=== PATIENT | female | born 1950 | race Caucasian/White ===

== ENCOUNTER → 2020-01-19 09:09 | Outpatient (BNVA) | payer MEDICARE, BC, SELFPAY | PROVIDERS: Family Provider Family Medicine; PCP Family Medicine; Referring Provider Family Medicine; Visit Provider Specialist | DX: M25.559 Pain in unspecified hip (principal); M77.9 Enthesopathy, unspecified | CPT/HCPCS: 73502 ==

== ENCOUNTER 2020-01-31 16:00 | Outpatient (RCR) | payer MEDICARE, BC, SELFPAY | END 2020-02-21 23:59 | disposition home or self-care (01) | LOC: MPT 16:00 | PROVIDERS: PCP Family Medicine; Referring Provider Specialist; Visit Provider Specialist | DX: M25.552 Pain in left hip (principal) | CPT/HCPCS: 97110; 97140; 97161 ==

== ENCOUNTER → 2020-02-03 08:29 | Outpatient (BNVA) | payer MEDICARE, BC, SELFPAY | PROVIDERS: PCP Family Medicine; Visit Provider Specialist | DX: Z47.1 Aftercare following joint replacement surgery (principal); Z96.651 Presence of right artificial knee joint | CPT/HCPCS: 73560; 73565 ==

== ENCOUNTER → 2020-02-17 09:11 | Outpatient (BNVA) | payer MEDICARE, BC, SELFPAY | PROVIDERS: PCP Family Medicine; Visit Provider Specialist | DX: M25.552 Pain in left hip (principal) | CPT/HCPCS: 73502 ==

== ENCOUNTER 2020-02-22 06:00 | Outpatient (RCR) | payer MEDICARE, BC, SELFPAY | END 2020-03-22 23:59 | disposition home or self-care (01) | LOC: MPT 06:00 | PROVIDERS: PCP Family Medicine; Referring Provider Specialist; Visit Provider Specialist | DX: M25.551 Pain in right hip (principal) | CPT/HCPCS: 97110; 97140 ==

== ENCOUNTER → 2020-06-01 10:26 | Outpatient (BNVA) | payer MEDICARE, BC, SELFPAY | PROVIDERS: PCP Family Medicine; Visit Provider Specialist | DX: Z20.828 Contact with and (suspected) exposure to other viral communicable diseases (principal) | CPT/HCPCS: 87635 ==

== ENCOUNTER 2020-06-06 15:45 | Observation (INO) | payer MEDICARE, BC, SELFPAY ==
[2020-06-01 09:12] VITALS: BMI 37.8
--- NOTE | 2020-06-01 09:36 | P.ANESASSM_ITS ---
Pre-Anesthetic Assessment Pre-Anesthetic Assessment: Height/Weight: Height 1.55 m Weight 90.718 kg Preop Diagnosis: DJD left hip Proposed Procedure: Operation Date: 06/06/20 13:05 Proposed Procedures p Total Hip Arthroplasty 99908 M16.9(Left) - Sheila Rowland MD Familial anesthetic complications: None Social: Social History: Tobacco and No alcohol Exam: Pre-Anes Outpt Exam: alert, oriented x 3, clear to auscultation bilaterally and regular rate & rhythm Airway: Cervical ROM: WNL MP: 4 Dentition: Partials CV/HEM: CV/HEM: CAD and [place] Comments: CABG 1.5 years ago, was seeing Dr. Sheehan as lead applications developer Achieves > 4 METS Metabolic: Metabolic: Thyroid (radiation therapy + synthroid) Musc/skel: Musc/skel: OA/DJD Anesthetic Plan: ASA status: 3 Anesthesia: General Other: patient declined spinal Risk of > 500 ml blood loss (7ml/kg in children): No PFSH Anesthesia PFSH: Medical History COPD (chronic obstructive pulmonary disease) Myocardial infarction Tobacco abuse Surgical History History of total right knee replacement S/P CABG (coronary artery bypass graft) S/P hysterectomy S/P knee replacement Status post breast reduction Family History Father Cancer Brother Cancer CAD (coronary artery disease) Diabetes Hypertension Myocardial infarction Family history of premature coronary artery disease, Onset Age: 50 Mother Myocardial infarction CAD (coronary artery disease) Social History Smoking and tobacco status: current every day smoker cigarettes Packs smoked per day: 1 Alcohol intake: never Household members: spouse Marital status: Data Anesthesia Cardiac Studies: No Data to Display
[2020-06-01 09:42] LABS: Add Urine Microscopic? NO
--- NOTE | 2020-06-01 09:43 | ECG_ITS ---
[facility] Test Date: 2020-06-01 Pat Name: Rin Mead Department: Room: Gender: Female House Repairer: : 1950 Requested By: Jennifer Santos Order Number: [id number] Kelli MD: Carol Ann Harmon M.D. Measurements Intervals [place] Rate: 54 P: 39 PA: 181 QRS: 12 QRSD: 80 T: 46 QT: 425 QTc: 405 Interpretive Statements SINUS BRADYCARDIA Compared to ECG 01/02/2018 11:16:09 No significant changes Electronically Signed On 06-01-2020 21:25:30 CARAMEL MAKER by Carol Ann Harmon M.D. [id number]
[2020-06-01 09:46] LABS: Basophils % 0.3 %; Eosinophils # 0.5 10^3/uL (0.0-0.8); Eosinophils % 8.4 %; Hematocrit 45.5 % (37.0-47.0); Hemoglobin 14.9 g/dL (11.5-15.3); Lymphocytes # 2.1 10^3/uL (0.8-4.8); Lymphocytes % 35.2 %; Mean Corpuscular HGB Conc 32.7 g/dL (30.0-36.0); Mean Corpuscular Volume 94.8 fL (81-99); Monocytes # 0.5 10^3/uL (0.2-0.9); Neutrophils # 2.86 10^3/uL (1.8-7.7); Neutrophils % 47.9 %; Nucleated Red Blood Cells % 0 %; Platelet Count 266 10^3/cmm (130-400); Red Cell Distribution Width 13.1 % (12.1-15.1)
[2020-06-01 10:05] LABS: Alanine Aminotransferase 28 U/L (0-33); Alkaline Phosphatase 73 IU/L (35-105); Anion Gap 14.3 (5-19); Aspartate Amino Transferase 24 U/L (0-32); Blood Urea Nitrogen 16 mg/dL (8-23); Carbon Dioxide 24 mmol/L (22-29); Chloride 104 mmol/L (98-107); Creatinine Clr Calc Pharmacy 69.9864; Globulin 2.9 g/dL (1.3-4.6); Glomerular Filtration Rate 83.5 mL/min (90-130); Glucose 113 mg/dL (65-115); Osmolality Calculated 288 mOsm/kg (285-295); Potassium 4.3 mmol/L (3.5-5.1); Sodium 138 mmol/L (136-145); Total Bilirubin 0.4 mg/dL (0.15-1.2); Total Protein 6.9 g/dL (6.6-8.7)
[2020-06-01 10:20] LABS: Bilirubin Urine Neg (Negative); Blood Urine Neg (Negative); Glucose Urine UA Norm (Normal); Ketones Urine Negative (Negative); Leukocyte Esterase Urine Negative (Negative); Nitrate Urine Negative (Negative); Protein Urine Neg (Negative); Specific Gravity, Urine 1.015 (1.005-1.030); Urine Appearance Clear (CLEAR); Urine Color Yellow (Yellow); Urobilinogen Urine Norm (Negative); pH Urine 5 (5-7)
[2020-06-06] VITALS (22 sets, daily range): BP systolic 101–144; BP diastolic 59–96; PULSE 58–82; RESP 12–20; TEMP 36.4–37.1; O2SAT 91–98
[2020-06-06] MEDS: CELEcoxib 200 mg Capsule 400 MG PO (09:41)
[2020-06-06] MEDS: sodium chloride 0.9% 1,000 ML 30 ML IV (09:51)
--- NOTE | 2020-06-06 10:38 | P.HPUD_ITS ---
Surgery/Procedure H&P Update DATE OF PROCEDURE: June 06, 2020 DATE H&P PERFORMED: 06/01/20 H&P UPDATE INFORMATION: I have reviewed H&P completed within last 30 days, I have examined patient prior to procedure, No changes to prior documentation and H&P is in [facility] EMR on date indicated PREOP DIAGNOSIS: DJD left hip PLANNED PROCEDURE: Operation Date: 06/06/20 10:50 Proposed Procedures p Total Hip Arthroplasty 46994 M16.9(Left) - Sheila Rowland MD Related Problem List Diagnoses (1) Osteoarthritis of left hip: Qualifiers: Osteoarthritis type: primary Qualified Code(s): M16.12 - Unilateral primary osteoarthritis, left hip
[2020-06-06] MEDS: vancomycin 1,000 MG in sodium chloride 0.9% 250 ML 250 MG IV (11:10)
[2020-06-06] MEDS: ceFAZolin 1,000 mg SDV 1000 MG IRRIGATION (12:34)
[2020-06-06] MEDS: vancomycin 1,000 MG SDV 1000 MG XX (12:41)
--- NOTE | 2020-06-06 14:54 | XR_ITS ---
WS: [id number] Pelvis, AP view, 06/06/2020 Clinical Data: Status post total hip arthroplasty Comparison: Pelvis, 02/17/2020. Findings: There is a left hip arthroplasty in position. The medullary lamina component is within the proximal f emoral medullary canal. The right hip shows osteoarthritic change. XR/XR pelvis 1-2V* [id number] Impression: Satisfactory position left hip arthroplasty
--- NOTE | 2020-06-06 15:15 | PM.OP ---
Operative Report Date of procedure: June 06, 2020 Pre-op Diagnosis: Severe degenerative osteoarthritis left hip with large osteophytes Post-op diagnosis: same Post-op Findings: Severe degenerative osteoarthritis with significant hip contracture Procedure Done: Left total hip arthroplasty Implants: Sellers Accolade II total hip system: The size 48 mm solid back acetabular shell with a D alpha code and an MDM liner size 38 mm inner diameter by D alpha code. An Accolade II size 5 x 127 degree neck angle hip stem, femoral head size 22.2 mm outer diameter with a 0 mm offset inside of an MDM insert size inner diameter 22.2 mm to match the 38D Specimens removed/disposition: Bone, disposed of Pathology: none sent Surgeon: Sheila Rowland Grinding Wheel Inspector: [facility] OR technicians Anesthesia: General (Intubated, ASA 3) Estimated blood loss (mL): 500 IV fluids (mL): 1,600 Urine output (mL): 200 Complications: None Findings: Severe degenerative osteoarthritis with contracture about the hip. Following the surgical procedure, the hip was stable at 90 degrees of flexion with 80 degrees of internal rotation and 30 degrees of adduction. It was stable to toe hang and external rotation as well. Leg lengths appear to be equalized. Condition: stable Disposition: PACU (Then to floor for postoperative rehabilitation) Brief History: This 69-year-old woman presented with complaints of severe left hip pain with significant reduction in range of motion. She has previously undergone successful right total knee arthroplasty. She has had significant limitations in her activities of daily living. Risks and complications of surgery were discussed with the patient. She understood and wished to proceed. Consents were signed. Questions were answered. Procedure: Patient was brought to the operating theater. She was transferred to the operating room table and subsequently administered a general anesthetic intubated, ASA 3. Following administration of adequate anesthesia, the patient was placed in full lateral position and held in position with a pegboard. The patient's left lower extremity was then prepped and draped in usual fashion utilizing DuraPrep. It was draped free. Following prepping and draping a surgical pause was performed. At the time of surgical pause, we identified the site and side of surgery. We also identified the patient and preoperative surgical markings. Confirmation was made of equipment availability. Additionally, the patient's preoperative IV antibiotic, vancomycin 1 g and TXA 1 g preoperatively was confirmed as being given in a timely fashion and as being the appropriate. An additional dose of TXA was to be given postoperatively as well. Following the surgical pause, an incision was made centering over the patient's greater trochanter continuing proximally and distally as necessary to allow access to the hip joint. Dissection continued through skin and soft tissues using a scalpel, and hemostasis was obtained using electrocautery. The tensor fascia mary was identified and incised longitudinally. Sciatic nerve was identified and protected throughout the surgical procedure. The patient had very thick subcutaneous fatty tissue. This made the procedure and exposure as well as access to the acetabulum and femur very difficult. A Charnley U retractor was placed after the tensor fascia mary had been incised longitudinally, and the sciatic nerve had been identified. The hip had significant limitation in range of motion, and most particularly, and internal rotation. Retractors were placed, and the piriformis muscle was identified and tagged. Piriformis muscle along with the remaining short external rotators were then incised from the posterior aspect of the hip joint. These were retracted posteriorly. The capsule was entered in a T-type fashion with the edges being tagged. Head was noted to be deformed. Dislocation was extremely difficult. We did have to remove some osteophytes prior to being able to dislocate the hip. Appropriate osteotomy was performed of the femoral neck following hip dislocation. We then evaluated the acetabulum. The femur was retracted anteriorly. Soft tissues were retracted, osteophytes were excised, and the labrum was removed. We then began reaming. Reaming was accomplished sequentially. We reamed to a size 47 to allow for a size 48 acetabular shell. The acetabulum was impacted into position. The dome hole was filled with the appropriate metal plug. Also, we confirmed that the acetabular insert was completely seated prior to addressing the femur. After the acetabulum was in appropriate position, we placed the MDM liner without difficulty. The cup was noted to seat nicely and had good fixation upon impact. Attention was directed to the proximal femur. The proximal femur was lifted out of the wound as much as possible. A canal finder was passed with difficulty after utilization of the box chisel. The reamer was used to lateralize. We then began broaching. We broached sequentially, and placed a size 6 broach in position for trial reduction. A trial reduction was attempted with a +0 femoral head which was the shortest available. We were unable to reduce the hip, and therefore, we removed the size 6 broach. We placed a size 5 broach seating it further into the femur. Proximal femur was then resected from around it. Trial reduction was again accomplished with a +0 mm offset femoral head. The hip was tight, but leg lengths appeared equalized. The hip was able to be reduced. This gave excellent stability, and with this in place, we had the above stabilities, and at that time, we felt that we had addressed the leg lengths, and they appeared to be more equal. Trial components were removed after the hip was dislocated. The size 5 Accolade II 127 degree neck angle hip stem was impacted into position without difficulty and onto this was placed a 0 mm offset femoral head with the appropriate MDM liner. The hip was then reduced without difficulty. With this construct, we had the above-noted stability. The stem was noted to seat nicely prior to placement of the femoral head. The wound was then copiously irrigated with 20 mL of Betadine and 500 mL of normal saline mixed together. Subsequently, we suctioned this out and irrigated the wound copiously with lactated Ringer's. Following reduction of the prosthesis once again, we confirmed the stability of the hip. Leg lengths were also felt to be satisfactory. Being satisfied with the prosthesis, attention was directed to closure. Closure was accomplished with 0 Vicryl in the capsular tissues. Piriformis was reattached with 0 Vicryl as well. Tensor fascia mary was closed with 0 Vicryl in an interrupted fashion. The subcutaneous tissues were closed with a combination of 0 Vicryl and 2-0 Monocryl. Vancomycin powder and a Gelfoam thrombin mixture was placed into the wound as well. The skin was closed with a running 3-0 Monocryl followed by Exofin and Steri-Strips. This was covered with Telfa and Tegaderm. The patient was placed in an abduction pillow. She was returned the Recovery Room in a satisfactory condition and will be discharged to the floor for postoperative rehabilitation and pain management. There were no complications. Associated Problem List Diagnoses (1) Osteoarthritis of left hip: Qualifiers: Osteoarthritis type: primary Qualified Code(s): M16.12 - Unilateral primary osteoarthritis, left hip
[2020-06-06] MEDS: fentaNYL 50 mcg/mL INJ 2mL IVP (15:17)
[2020-06-06] MEDS: calcium carbonate 500 mg Chew Tablet 1000 MG PO (17:14)
[2020-06-06] MEDS: mupirocin oint 22 gm 1 APPLIC NASAL (17:14)
[2020-06-06] MEDS: sennosides-docusate Tablet 2 TAB PO (17:14)
[2020-06-06] MEDS: metoprolol tartrate 50 mg Tablet PO (17:14)
[2020-06-06] MEDS: chlorhexidine gluconate 0.12% Btl 473 mL 30 ML MUCOUS MEM (17:14)
[2020-06-06] MEDS: iron polysaccharide complex 150 mg Capsule PO (17:14)
--- NOTE | 2020-06-06 17:38 | PM.PACU ---
PACU note PACU note: Pain actively treated Post-Anesthesia Exam: awake and vital signs stable Disposition: admitted
[2020-06-07 00:44] VITALS: BP 123/76; PULSE 68; RESP 18; TEMP 37; O2SAT 97
[2020-06-07 02:33] LABS: Basophils % 0.2 %; Eosinophils % 0.1 %; Hematocrit 40.2 % (37.0-47.0); Lymphocytes % 9.6 %; Mean Corpuscular HGB Conc 32.3 g/dL (30.0-36.0); Mean Corpuscular Hemoglobin 31.3 pg (28.0-34.0); Mean Corpuscular Volume 96.9 fL (81-99); Mean Platelet Volume 9.9 fL (7.4-10.4); Monocytes # 1.1 10^3/uL (0.2-0.9); Monocytes % 10.1 %; Neutrophils # 8.32 10^3/uL (1.8-7.7); Neutrophils % 79.8 %; Nucleated Red Blood Cells % 0 %; Platelet Count 252 10^3/cmm (130-400); Red Blood Count 4.15 10^6/uL (4.1-5.3); Red Cell Distribution Width 13.4 % (12.1-15.1); White Blood Count 10.4 10^3/uL (4.0-10.0)
[2020-06-07 02:57] LABS: Anion Gap 14.5 (5-19); Blood Urea Nitrogen 13 mg/dL (8-23); Calcium 8.8 mg/dL (8.5-10.5); Carbon Dioxide 23 mmol/L (22-29); Chloride 104 mmol/L (98-107); Creatinine Clr Calc Pharmacy 69.9864; Glomerular Filtration Rate 99.7 mL/min (90-130); Glucose 135 mg/dL (65-115); Osmolality Calculated 286 mOsm/kg (285-295); Potassium 4.5 mmol/L (3.5-5.1); Sodium 137 mmol/L (136-145)
[2020-06-07 04:11] VITALS: BP 127/74; PULSE 68; RESP 18; TEMP 37.2; O2SAT 96
[2020-06-07 08:23] VITALS: BP 134/82; PULSE 84; RESP 17; TEMP 36.6; O2SAT 97
[2020-06-07 08:59] VITALS: PULSE 84; O2SAT 97
[2020-06-07] MEDS: calcium carbonate 500 mg Chew Tablet 1000 MG PO (09:53)
[2020-06-07] MEDS: aspirin 325 mg Tablet PO (09:54)
[2020-06-07] MEDS: levothyroxine 125 mcg Tablet PO (09:54)
[2020-06-07] MEDS: multivitamin therapeutic Tablet 1 TAB PO (09:54)
[2020-06-07] MEDS: cholecalciferol (vitamin D3) 1,000 unit Tablet 1000 UNIT PO (09:54)
[2020-06-07] MEDS: iron polysaccharide complex 150 mg Capsule PO (09:54)
[2020-06-07] MEDS: metoprolol tartrate 50 mg Tablet PO (09:54)
[2020-06-07] MEDS: duloxetine 60 mg Capsule PO (09:54)
[2020-06-07] MEDS: sennosides-docusate Tablet 2 TAB PO (09:55)
[2020-06-07] MEDS: atorvastatin 40 mg Tablet 20 MG PO (09:55)
[2020-06-07] MEDS: CELEcoxib 200 mg Capsule PO (09:55)
[2020-06-07] MEDS: mupirocin oint 22 gm 1 APPLIC NASAL (10:07)
[2020-06-07] MEDS: chlorhexidine gluconate 0.12% Btl 473 mL 30 ML MUCOUS MEM ×2 (10:08→12:48)
--- NOTE | 2020-06-07 11:16 | P.DS_ITS ---
Discharge Providers Date of Admission: 06/06/20 15:45 Date of Discharge: June 07, 2020 Attending Provider at Admission: Sheila Rowland MD Attending Provider at Discharge: Sheila Rowland MD Primary Care Provider: Stephen Almaguer Diagnoses at Discharge Discharge Diagnosis (1) Status post total hip replacement, left: Status: Acute (2) Osteoarthritis of left hip: Status: Acute Qualifiers: Osteoarthritis type: primary Qualified Code(s): M16.12 - Unilateral primary osteoarthritis, left hip Reason for Visit Reason for Visit: left total hip arthoplasty Hospital Course Hospital Course Patient was admitted to observation status after undergoing left total hip arthroplasty. She tolerated the procedure well. She is unable to take narcotic pain medications, and therefore, pain management is challenging, but she appears to be comfortable. Patient had an uneventful night. On the first postoperative day, she was working with physical therapy. She did complain of pain but she was able to get up and down from a chair without difficulty. Plans are made for her discharge home with home health. The patient is in agreement with the plan. Physical Exam Const: COMMON NORMALS: no acute distress, patient oriented x3 and alert GENERAL APPEARANCE: cooperative and comfortable ORIENTATION/CONSCIOUSNESS: Yes awake HENMT: COMMON NORMALS: normocephalic and atraumatic HEAD & SCALP: normocephalic and atraumatic Eye: GENERAL EYE: appearance normal, both eyes and all related structures Chest: COMMONS NORMALS: normal inspection of the chest Resp: COMMON NORMALS: normal respiratory effort EFFORT & INSPECTION: Yes able to speak in complete sentences and Yes symmetric chest movement Extremity: LEFT LOWER EXTREMITY: Yes hip joint (Dressing is removed, and the hip is benign.) Left hip: Yes inspection (There is no drainage.), Yes palpation (Minimal to no tenderness to palpation.), Yes ROM (Not evaluated.) and Yes neurovascular exam (Intact with no evidence of DVT) Neuro: COMMON NORMALS: patient oriented x3 SENSORIUM/ORIENTATION: Yes alert Psych: COMMON NORMALS: mental status grossly normal APPEARANCE: Yes grossly normal ATTITUDE: Yes calm and Yes engaged ATTENTION/CONCENTRATION: Yes attention grossly intact Skin: COMMON NORMALS: no rashes or lesions noted GENERAL SKIN EXAM: no rashes or lesions noted Urinary Catheter Management^: Bautista: Cath Placed During This Visit: yes, but has since been removed by the nurse Reason for Continuing Indwelling Catheter: Perioperative Use in Selected Surgeries Urinary Catheter Date of Insertion: 06/06/20 Urinary Catheter Time of Insertion: 12:00 Date Urinary Catheter Removed: 06/07/20 Time Urinary Catheter Discontinued: 06:18 Discharge Data Data Completed and Pending: Completed Studies During Hospitalization Category Date Time Status XR pelvis 1-2V* 7 2170 Routine Exams 06/06/20 14:54 Completed Pending at discharge Category Date Time Status Complete Blood Co unt w/Auto AM LABS Lab 06/08/20 04:00 Ordered Complete Blood Co unt w/Auto AM LABS Lab 06/09/20 04:00 Ordered Labs from last 24 hours 06/07/20 06/07/20 02:00 02:00 WBC 10.4 H RBC 4.15 Hgb 13.0 Hct 40.2 MCV 96.9 MCH 31.3 MCHC 32.3 RDW 13.4 Plt Count 252 MPV 9.9 Neut % (Auto) 79.8 Lymph % (Auto) 9.6 [place] % (Auto) 10.1 Eos % (Auto) 0.1 Baso % (Auto) 0.2 Neut # (Auto) 8.32 H Lymph # (Auto) 1.0 [place] # (Auto) 1.1 H Eos # (Auto) 0.0 Baso # (Auto) 0.0 Nucleated RBC % (a uto) 0 Nucleated RBCs # 0.0 Sodium 137 Potassium 4.5 Chloride 104 Carbon Dioxide 23 Anion Gap 14.5 BUN 13 Creatinine 0.6 GFR Calculation 99.7 Glucose 135 H Calculated Osmolal ity 286 Calcium 8.8 Vitals: Last Vital Signs Temp 97.8 F 06/07/20 08:23 Pulse 84 06/07/20 08:59 Resp 17 06/07/20 08:23 BP 134/82 06/07/20 08:23 Pulse Ox 97 06/07/20 08:59 Discharge Plan Discharge Patient Disposition: Home Health Service Condition: Stable Prescriptions: Continued meloxicam 15 mg tablet 15 mg PO DAILY Qty: 30 RF: 0 celecoxib [Celebrex] 200 mg capsule 200 mg PO DAILY Qty: 30 RF: 0 metoprolol tartrate 50 mg tablet 50 mg PO BID RF: 0 methimazole 10 mg tablet 10 mg PO DAILY RF: 0 metoclopramide HCl 10 mg tablet 10 mg PO Q6H PRN (Reason: Nausea) RF: 0 pravastatin 40 mg tablet 40 mg PO DAILY RF: 0 amitriptyline 10 mg tablet 10 mg PO DAILY RF: 0 duloxetine 60 mg capsule,delayed release(DR/EC) 60 mg PO DAILY RF: 0 aspirin 325 mg tablet 325 mg PO DAILY RF: 0 magnesium 250 mg tablet 250 mg PO DAILY RF: 0 levothyroxine 150 mcg tablet 125 mcg PO DAILY RF: 0 vitamin B2 in 20 % dextran 1 caplet PO DAILY RF: 0 Discharge Orders: Discharge Order (Routine); Ordered 06/07/20 Ordered By: Sheila Rowland Referrals: [facility] Home Care ([facility]) [Outside] Sheila Rowland MD [Physician] - 06/21/20 8:00 am (Follow-up with me on June 26 at 10:45 AM with x-ray) Discharge Diet: Advance as tolerated and Usual diet Discharge Activity: Limit activity as instructed, Use walker/crutches as instructed and As per PT/OT instructions Activity Restrictions/Additional Instructions: Posterior hip precautions. Maintain dressing. Maintain abduction pillow. Discharge Attestations Time Spent in Discharge Care*: greater than 30 min Specific Discharge Activities: educating patient, discussing with behavioral health case manager/social workers/dc planners, documenting/other paperwork and evaluating patient/reviewing data Status at Discharge: Cognitive status at discharge: cognitively intact , Behavioral status at discharge: cooperative , Functional status at discharge: independent ambulation Quality Metrics Clinical Quality Measures During this hospital stay, did patient experience: None Coding Level of Care Code Acute Complaint Supervisor for Belkis Burr Diagnoses Status post total hip replacement, left Z96.642 Osteoarthritis of left hip M16.12 Osteoarthritis type: primary
[2020-06-07 12:17] VITALS: BP 112/73; PULSE 86; RESP 18; TEMP 37; O2SAT 99
[2020-06-07] MEDS: vancomycin 1,000 MG in sodium chloride 0.9% 250 ML 250 MG IV (12:48)
[2020-06-07 15:41] VITALS: BP 112/73; PULSE 86; RESP 18; TEMP 37; O2SAT 99
== END 2020-06-07 14:55 | disposition home health service (06) ==
LOC: MEDSURG 15:46
PROVIDERS: Admitting Provider Specialist; PCP Family Medicine; Visit Provider Specialist
PROC: (CPT 27130; principal; 2020-06-06 10:30)
DX: M16.12 Unilateral primary osteoarthritis, left hip (principal); M25.752 Osteophyte, left hip; M24.552 Contracture, left hip; I25.10 Atherosclerotic heart disease of native coronary artery without angina pectoris; I25.2 Old myocardial infarction; J44.9 Chronic obstructive pulmonary disease, unspecified; F17.210 Nicotine dependence, cigarettes, uncomplicated; Z79.82 Long term (current) use of aspirin
CPT/HCPCS: 27130; 12345; 36415; 72170; 80048; 80053; 81003; 85025; 93005; 96361; 96365; 96366; 97116; 97161; 97166; 97530; C1776; G0378; J0131; J0690; J1100; J2250; J2370; J2405; J2704; J2710; J3010; J3370; J3490; J7030; J7050

== ENCOUNTER → 2020-06-26 11:08 | Outpatient (BNVA) | payer MEDICARE, BC, SELFPAY | PROVIDERS: PCP Family Medicine; Visit Provider Specialist | DX: Z96.642 Presence of left artificial hip joint (principal) | CPT/HCPCS: 73502 ==

== ENCOUNTER → 2020-08-21 14:14 | Outpatient (BNVA) | payer MEDICARE, BC, SELFPAY | PROVIDERS: PCP Family Medicine; Visit Provider Specialist | DX: Z96.642 Presence of left artificial hip joint (principal); Z98.890 Other specified postprocedural states; M16.12 Unilateral primary osteoarthritis, left hip | CPT/HCPCS: 73502 ==

== ENCOUNTER → 2020-11-22 13:12 | Outpatient (BNVA) | payer MEDICARE, BC, SELFPAY | PROVIDERS: PCP Family Medicine; Visit Provider Specialist | DX: Z96.642 Presence of left artificial hip joint (principal); M16.11 Unilateral primary osteoarthritis, right hip | CPT/HCPCS: 73502 ==

== ENCOUNTER → 2021-04-13 08:36 | Outpatient (BNVA) | payer MEDICARE, BC, SELFPAY | PROVIDERS: PCP Family Medicine; Visit Provider Nurse Practitioner Family | DX: Z20.822 Contact with and (suspected) exposure to COVID-19 (principal) | CPT/HCPCS: 87426 ==

== ENCOUNTER → 2021-10-01 13:12 | Outpatient (BNVA) | payer MEDICARE, BC, SELFPAY | PROVIDERS: PCP Family Medicine; Visit Provider Nurse Practitioner Family | DX: I25.10 Atherosclerotic heart disease of native coronary artery without angina pectoris (principal); Z95.1 Presence of aortocoronary bypass graft; I10 Essential (primary) hypertension; F17.210 Nicotine dependence, cigarettes, uncomplicated; Z79.82 Long term (current) use of aspirin; R00.1 Bradycardia, unspecified; I25.2 Old myocardial infarction | CPT/HCPCS: 36415; 80048; 83880; 93005; 99214 ==

== ENCOUNTER 2021-10-25 09:42 | Outpatient (CLI) | payer MEDICARE, BC, SELFPAY ==
[2021-10-25 10:07] VITALS: BMI 39.2
--- NOTE | 2021-10-25 10:08 | NMCV_ITS ---
NM kasia perf SPECT r/s* [id number] Rin Mead Age: 71 Gender: F : 1950 Exam Date: 10/25/2021 11:05 Ordering Phys: Antonella Salas Technologist: IESHA Hurd Exam Location: [facility] Indications: ATHEROSCLEROTIC HEART DISEASE STRESS TEST [facility] IMAGE PROTOCOL Rest/Stress 1 Lexiscan Day Radiopharmaceutical Dose (mCi) Administration Site Administered by Rest: Tc-99m 10.9 IV IESHA Chang Sestamibi Stress:Tc-99m 32.7 IV IESHA uHrd Sestamicassie Rest: 25-Oct-2021 60 Discovery 630 Stress: 25-Oct-2021 30 Discovery 630 0.4mg Lexiscan. Images obtained in supine and prone position. SPECT RESULTS Technical Quality: Excellent Raw Data Analysis: Normal Image Corrections: No attenuation or motion correction applied Summed Stress Score: 1 Summed Rest Score: 1 Summed Difference Score: 1 PERFUSION FINDINGS SPECT images demonstrate homogeneous tracer distribution throughout the myocardium. FUNCTIONAL RESULTS (calculated via Gated SPECT) Stress Image LV EF (%): 82 Stress EDV (mL):61 TID: 1.07 Stress ESV (mL):11 FUNCTIONAL FINDINGS: There is normal left ventricular systolic function. IMPRESSIONS 1. Normal myocardial perfusion imaging with no evidence of ischemia 2. LV systolic function is normal Marlon Ybarra MD (Electronically Signed) Final Date: 29 Oct 2021 08:54 S
--- NOTE | 2021-10-25 10:08 | ECG_ITS ---
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 Interpretive Statements NAME OF STUDY: LEXISCAN SESTAMIBI STRESS TEST INDICATION: [CHEST PAIN, DIAPHORESIS, EXERTIONAL SHORTNESS OF BREATH] Procedure: At the baseline, the blood pressure was 135/74mmHg with a heart rate of 57 bpm. The electrocardiogram showed normal sinus rhythm, normal axis with normal ST and T's. The Lexiscan was infused over a period of 20 seconds. A total of 0.4 mg of Lexiscan was infused. The stress phase was continued for a total of 5 minutes. Heart rate was at the end of stress phase was 67 bpm and a blood pressure of 128/65 mmHg. The EKG at the peak infusion revealed normal sinus rhythm with no significant ST-T wave changes. Sestamibi was injected 20 seconds after the Lexiscan infusion. Blood pressure at the end of recovery phase was 132/66 mmHg with a heart rate of 66 bpm. Conclusion: 1. Normal EKG response to Lexiscan infusion 2. No Lexiscan induced chest pain or cardiac arrhythmia. 3. Normal blood pressure and heart rate response. 4. Sestamibi/sestamibi perfusion scan pending; see separate report. Electronically Signed On 11-22-2021 15:12:51 CDT by Marlon Ybarra M.D. [id number]
[2021-10-25] MEDS: regadenoson 0.4 Mg/5 ml Syringe IVP (11:38)
[2021-10-25 12:22] VITALS: BP 138/63; PULSE 63
== END 2021-10-25 09:43 | disposition home or self-care (01) ==
LOC: CDL 09:45
PROVIDERS: PCP Family Medicine; Visit Provider Nurse Practitioner Family
DX: R06.02 Shortness of breath (principal)
CPT/HCPCS: 78452; 93017; A9500; J2785

== ENCOUNTER → 2021-11-21 10:43 | Outpatient (BNVA) | payer MEDICARE, BC, SELFPAY | PROVIDERS: PCP Family Medicine; Visit Provider Nurse Practitioner Family | DX: Z96.642 Presence of left artificial hip joint (principal); Z48.89 Encounter for other specified surgical aftercare | CPT/HCPCS: 73502; 99213; 99214 ==

== ENCOUNTER → 2021-12-03 14:15 | Outpatient (BNVA) | payer MEDICARE, BC, SELFPAY | PROVIDERS: PCP Family Medicine; Visit Provider Internal Medicine | DX: I25.10 Atherosclerotic heart disease of native coronary artery without angina pectoris (principal); I10 Essential (primary) hypertension; Z95.1 Presence of aortocoronary bypass graft; I25.2 Old myocardial infarction; F17.210 Nicotine dependence, cigarettes, uncomplicated | CPT/HCPCS: 99214 ==

== ENCOUNTER 2022-01-14 07:01 | Outpatient (CLI) | payer MEDICARE, BC, SELFPAY ==
--- NOTE | 2022-01-14 07:21 | CT_ITS ---
WS: [id number] CT FACIAL BONES TECHNIQUE: Noncontrast facial bones with coronal and sagittal reformatted images. CLINICAL INFORMATION: FULLNESS R SIDE OF NOSE RT MAXILLARY AREA COMPARISON: None. DLP: 566.[address] scans at [facility] use at least one of these dose optimization techniques: automated e xposure control; mA and/or kV adjustment per patient size (includes targeted exams where dose is matc hed to clinical indication); or iterative reconstruction. FINDINGS: Palpable marker RIGHT nasal area overlying the anterior process of the RIGHT maxillary sinus. Tiny am ount of stranding and induration. No evidence of underlying mass or fluid collection. Opacification LEFT maxillary sinus. Maxillary sinus is well aerated. Frontal sinuses and ethmoid air cells well aerated. Sphenoid sinuses are well aerated. Incidental LEFT middle cranial fossa arachnoid cyst measuring 2.[address]/CT facial bones wo con* [id number] IMPRESSION: 1. Palpable marker RIGHT nasal area overlying the anterior process of the RIGH T maxillary sinus. Tiny amount of inflammatory stranding and induration. No darron dence of underlying mass or fluid collection. 2. Incidental LEFT middle cranial fossa arachnoid cyst measuring 2.9 x 1.8 cm.
== END 2022-01-14 07:02 | disposition home or self-care (01) ==
LOC: RAD 07:04
PROVIDERS: PCP Family Medicine; Visit Provider Family Medicine
DX: R22.0 Localized swelling, mass and lump, head (principal)
CPT/HCPCS: 70486

== ENCOUNTER → 2022-06-03 15:21 | Outpatient (BNVA) | payer MEDICARE, BC, SELFPAY | PROVIDERS: PCP Family Medicine; Visit Provider Internal Medicine | DX: I10 Essential (primary) hypertension (principal); I25.10 Atherosclerotic heart disease of native coronary artery without angina pectoris; Z95.1 Presence of aortocoronary bypass graft; I25.2 Old myocardial infarction; F17.210 Nicotine dependence, cigarettes, uncomplicated | CPT/HCPCS: 99213 ==

== ENCOUNTER → 2022-08-01 10:56 | Outpatient (BNVA) | payer MEDICARE, BC, SELFPAY | PROVIDERS: PCP Family Medicine; Visit Provider Orthopaedic Surgery | DX: M48.16 Ankylosing hyperostosis [Forestier], lumbar region (principal); M48.062 Spinal stenosis, lumbar region with neurogenic claudication | CPT/HCPCS: 72110; 99204 ==

== ENCOUNTER 2022-08-29 06:57 | Outpatient (CLI) | payer MEDICARE, BC, SELFPAY ==
--- NOTE | 2022-08-29 07:15 | MR_ITS ---
WS: [id number] MRI LUMBAR SPINE NONCONTRAST HISTORY: Chronic back pain for 5 years. No injury. COMPARISON: Lumbar radiographs 08/01/2022 TECHNIQUE: Sagittal and axial multisequence imaging is submitted. Moderate increase in thoracic kyphosis. Mild increase in lumbar lordosis. There is a small amount of increased T2 signal in T12 and L1. Moder ate disc space narrowing at T12-L1. The remaining vertebral bodies are normal. Moderate disc space narrowing at L5-S1. Conus terminates normally at L1. T12-L1: Diffuse annular disc bulging. RIGHT foraminal disc protrusion causing RIGHT foraminal narrowi ng and mild encroachment upon the RIGHT lateral thecal sac. Moderate facet and ligamentum flavum hype rtrophy. No central stenosis. Moderate RIGHT foraminal stenosis and mild LEFT foraminal stenosis. L1-L2: Normal. L2-L3: Normal. L3-L4: Mild ligamentum flavum and facet arthritis. No significant stenosis. L4-L5: Moderate ligamentum flavum and facet arthritis. Very minimal encroachment upon the thecal sac. No significant stenosis. L5-S1: Mild annular disc bulge. Moderate ligamentum flavum and facet arthritis. Disc and osteophyte e ncroachment and probable disc protrusion in the foramina. Moderate LEFT and mild RIGHT foraminal sten osis. Renal cyst. MR/MR lumbar spine wo con* [id number] IMPRESSION: 1. Advanced degenerative disc disease at T12-L1 with chronic marrow replacemen t in the vertebral bodies. 2. RIGHT foraminal disc protrusion at T12-L1 causing moderate RIGHT foraminal stenosis. Mild LEFT foraminal stenosis. 3. Moderate LEFT and mild RIGHT foraminal stenosis at L5-S1. Suspect disc prot rusions in the foramina superimposed on annular disc bulging and facet disease. 4. Mild facet joint arthritis from L3-4 to L5-S1.
== END 2022-08-29 06:58 | disposition home or self-care (01) ==
LOC: RAD 06:57
PROVIDERS: PCP Family Medicine; Visit Provider Orthopaedic Surgery
DX: G89.29 Other chronic pain (principal); M51.35 Other intervertebral disc degeneration, thoracolumbar region; M47.816 Spondylosis without myelopathy or radiculopathy, lumbar region; M47.817 Spondylosis without myelopathy or radiculopathy, lumbosacral region; M48.07 Spinal stenosis, lumbosacral region
CPT/HCPCS: 72148; 99214

== ENCOUNTER → 2022-09-24 09:58 | Outpatient (BNVA) | payer MEDICARE, BC, SELFPAY | PROVIDERS: PCP Family Medicine; Visit Provider Anesthesiology Pain Medicine | DX: M48.062 Spinal stenosis, lumbar region with neurogenic claudication (principal); M47.816 Spondylosis without myelopathy or radiculopathy, lumbar region; Z96.642 Presence of left artificial hip joint | CPT/HCPCS: 99204 ==

== ENCOUNTER → 2022-09-27 09:44 | Outpatient (BNVA) | payer MEDICARE, BC, SELFPAY | PROVIDERS: PCP Family Medicine; Referring Provider Family Medicine; Visit Provider Nurse Practitioner Family | DX: M17.12 Unilateral primary osteoarthritis, left knee (principal) | CPT/HCPCS: 73560; 73565; 99214 ==

== ENCOUNTER 2022-10-08 06:00 | Outpatient (RCR) | payer MEDICARE, BC, SELFPAY | END 2022-10-20 23:59 | disposition home or self-care (01) | LOC: MPT 06:00 | PROVIDERS: Visit Provider Anesthesiology Pain Medicine | DX: G89.29 Other chronic pain (principal); M54.50 Low back pain, unspecified | CPT/HCPCS: 97110; 97140; 97162; G0283 ==

== ENCOUNTER → 2022-10-18 08:23 | Outpatient (BNVA) | payer MEDICARE, BC, SELFPAY | PROVIDERS: Visit Provider Nurse Practitioner Family | DX: M17.12 Unilateral primary osteoarthritis, left knee (principal) | CPT/HCPCS: 20610; 99213; J7318 ==

== ENCOUNTER 2022-10-21 06:00 | Outpatient (RCR) | payer MEDICARE, BC, SELFPAY | END 2022-11-20 23:59 | disposition home or self-care (01) | LOC: MPT 06:00 | PROVIDERS: Visit Provider Anesthesiology Pain Medicine | DX: M54.50 Low back pain, unspecified (principal); G89.29 Other chronic pain | CPT/HCPCS: 97110; 97140; G0283 ==

== ENCOUNTER 2022-11-21 06:00 | Outpatient (RCR) | payer MEDICARE, BC, SELFPAY | END 2022-12-20 23:59 | disposition home or self-care (01) | LOC: MPT 06:00 | PROVIDERS: PCP Family Medicine; Visit Provider Anesthesiology Pain Medicine | DX: M54.50 Low back pain, unspecified (principal); G89.29 Other chronic pain | CPT/HCPCS: 97110; G0283 ==

== ENCOUNTER → 2022-12-03 15:30 | Outpatient (BNVA) | payer MEDICARE, BC, SELFPAY | PROVIDERS: PCP Family Medicine; Visit Provider Internal Medicine | DX: I10 Essential (primary) hypertension (principal); Z95.1 Presence of aortocoronary bypass graft; Z72.0 Tobacco use; I25.10 Atherosclerotic heart disease of native coronary artery without angina pectoris; I25.2 Old myocardial infarction | CPT/HCPCS: 99214 ==

== ENCOUNTER → 2022-12-10 10:28 | Outpatient (BNVA) | payer MEDICARE, BC, SELFPAY | PROVIDERS: PCP Family Medicine; Visit Provider Nurse Practitioner Family | DX: M17.12 Unilateral primary osteoarthritis, left knee (principal); M47.816 Spondylosis without myelopathy or radiculopathy, lumbar region; M48.062 Spinal stenosis, lumbar region with neurogenic claudication; Z96.642 Presence of left artificial hip joint | CPT/HCPCS: 99213; 99214 ==

== ENCOUNTER 2022-12-26 07:32 | Outpatient (CLI) | payer MEDICARE, BC, SELFPAY ==
--- NOTE | 2022-12-26 08:00 | USCV_ITS ---
[place] Rin Age: 72 Gender: F : 1950 Exam Date: 12/26/2022 08:00 Ordering Phys: Marlon Ybarra M.D ([email or web address]) Technologist: Soniya Valdez Exam Location: [facility] [place] Indication: COPD< SOB BP: 117 / 72 HR: 57 Rhythm: Sinus Technical Quality: Adequate MEASUREMENTS (Male / Female) Normal Values 2D ECHO LV Diastolic Diameter PLAX 3.2 cm 4.2 - 5.9 / 3.9 - 5.3 cm LV Systolic Diameter PLAX 1.6 cm IVS Diastolic Thickness 1.5 cm 0.6 - 1.0 / 0.6 - 0.9 cm IVS Systolic Thickness 1.8 cm LVPW Diastolic Thickness 1.0 cm 0.6 - 1.0 / 0.6 - 0.9 cm LVPW Systolic Thickness 2.3 cm LVOT Diameter 2.1 cm LV Ejection Fraction 2D Teich 82.0 % LV Ejection Fraction MOD 2C 63.5 % LV Ejection Fraction 2C AL 64.2 % LA Diameter 3.5 cm LA Width 2.8 cm LA Height 4.7 cm RA Width 3.7 cm RA Height 3.9 cm Aorta at Sinotubular Diameter 2.5 cm IVC Diameter 1.1 cm M-MODE Aortic Annulus Diameter 2.9 cm LA Ao Ratio MM 1.3 MV E Point Septal Separation 0.8 cm DOPPLER AV Peak Velocity 146.0 cm/s LVOT Peak Velocity 89.0 cm/s AV Area Cont Eq vti 2.4 cm squared AV Area Cont Eq pk 2.0 cm squared MV Peak Velocity 105.0 cm/s MV Area PHT 3.3 cm squared Mitral E to A Ratio 1.3 MV E' Velocity 60.5 cm/s Mitral E to MV E' Ratio 12.9 Mitral E to LV E' Lateral Ratio 12.3 Mitral E to LV E' Septal Ratio 13.5 TR Peak Velocity 105.0 cm/s TR Peak Gradient 4.4 mmHg Right Atrial Pressure 5.0 mmHg Pulmonary Artery Systolic Pressu 9.4 mmHg PV Peak Velocity 71.0 cm/s RV Acceleration Time 0.1 s RV Ejection Time 0.4 s RV AcT/ET 0.2 FINDINGS Left Ventricle Left ventricle is normal in size. LV systolic function is normal with EF of 60 to 65%. No regional wall motion abnormalities seen. Right Ventricle The right ventricle is normal in size and function. Right Atrium The right atrium is normal in size. Left Atrium The left atrium is normal in size. Mitral Valve Grossly normal. There is mild mitral regurgitation. Aortic Valve Grossly normal. No significant stenosis or regurgitation seen. Tricuspid Valve Trace tricuspid regurgitation. Insufficient TR jet to calculate RVSP Pulmonic Valve Not well-visualized Pericardium Normal pericardium without effusion. Aorta Normal ascending aorta dimension. IVC The inferior vena cava appears normal. CONCLUSIONS LV systolic function is normal with EF of 60 to 65%. Mild mitral regurgitation Trace tricuspid regurgitation No comparison studies are available Marlon Ybarra MD (Electronically Signed) Final Date: 28 December 2022 09:59 S
== END 2022-12-26 07:33 | disposition home or self-care (01) ==
PROVIDERS: PCP Family Medicine; Visit Provider Internal Medicine
DX: R07.9 Chest pain, unspecified (principal); I34.0 Nonrheumatic mitral (valve) insufficiency; I07.1 Rheumatic tricuspid insufficiency
CPT/HCPCS: 93306

== ENCOUNTER → 2023-01-07 12:51 | Outpatient (BNVA) | payer MEDICARE, BC, SELFPAY | PROVIDERS: PCP Family Medicine; Visit Provider Anesthesiology Pain Medicine | DX: M47.816 Spondylosis without myelopathy or radiculopathy, lumbar region (principal); M48.062 Spinal stenosis, lumbar region with neurogenic claudication | CPT/HCPCS: 64493; 64494; 64495; J3490 ==

== ENCOUNTER → 2023-01-21 13:08 | Outpatient (BNVA) | payer MEDICARE, BC, SELFPAY | PROVIDERS: PCP Family Medicine; Visit Provider Anesthesiology Pain Medicine | DX: M47.816 Spondylosis without myelopathy or radiculopathy, lumbar region (principal); M48.062 Spinal stenosis, lumbar region with neurogenic claudication | CPT/HCPCS: 64493; 64494; 64495; J3490 ==

== ENCOUNTER → 2023-02-05 08:44 | Outpatient (BNVA) | payer MEDICARE, BC, SELFPAY | PROVIDERS: PCP Family Medicine; Visit Provider Anesthesiology Pain Medicine | DX: M48.062 Spinal stenosis, lumbar region with neurogenic claudication (principal); Z96.642 Presence of left artificial hip joint; M47.816 Spondylosis without myelopathy or radiculopathy, lumbar region | CPT/HCPCS: 99214 ==

== ENCOUNTER → 2023-02-19 10:09 | Outpatient (BNVA) | payer MEDICARE, BC, SELFPAY | PROVIDERS: PCP Family Medicine; Visit Provider Nurse Practitioner Family | DX: M25.551 Pain in right hip (principal); M47.816 Spondylosis without myelopathy or radiculopathy, lumbar region; M48.062 Spinal stenosis, lumbar region with neurogenic claudication; M16.11 Unilateral primary osteoarthritis, right hip | CPT/HCPCS: 64635; 64636; 73502; 99213; J1030 ==

== ENCOUNTER → 2023-04-01 13:05 | Outpatient (BNVA) | payer MEDICARE, BC, SELFPAY | PROVIDERS: PCP Family Medicine; Visit Provider Anesthesiology Pain Medicine | DX: M48.062 Spinal stenosis, lumbar region with neurogenic claudication (principal); Z96.642 Presence of left artificial hip joint; M47.816 Spondylosis without myelopathy or radiculopathy, lumbar region | CPT/HCPCS: 99214 ==

== ENCOUNTER → 2023-05-05 08:57 | Outpatient (BNVA) | payer MEDICARE, BC, SELFPAY | PROVIDERS: PCP Family Medicine; Visit Provider Specialist | DX: M17.12 Unilateral primary osteoarthritis, left knee (principal); R93.6 Abnormal findings on diagnostic imaging of limbs; E66.01 Morbid (severe) obesity due to excess calories; Z68.41 Body mass index [BMI] 40.0-44.9, adult; Z72.0 Tobacco use | CPT/HCPCS: 73560; 73565; 99214 ==

== ENCOUNTER 2023-05-19 15:05 | Outpatient (CLI) | payer MEDICARE, BC, SELFPAY ==
--- NOTE | 2023-05-19 15:15 | CT_ITS ---
WS: [id number] CT LEFT knee, noncontrast HISTORY: LEFT TOTAL KNEE ARTHROPLASTY TECHNIQUE: Protocol for ALVIN total knee replacement has been obtained. This includes axial imaging th rough the LEFT hip, LEFT knee and LEFT ankle. DLP: 1030.98 mGy COMPARISON: None available. Pelvis: Prior LEFT hip arthroplasty. No bone destruction. Mild sigmoid diverticulosis. LEFT knee: Mild joint space narrowing. No fracture. Marginal osteophytes and small joint effusion. LEFT ankle: No osseous destruction. IMPRESSION: CT imaging provided for [facility] robotic total knee replacement.
== END 2023-05-19 15:06 | disposition home or self-care (01) ==
LOC: RAD 15:05
PROVIDERS: PCP Family Medicine; Visit Provider Specialist
DX: M17.12 Unilateral primary osteoarthritis, left knee (principal); M25.762 Osteophyte, left knee
CPT/HCPCS: 73700

== ENCOUNTER → 2023-06-09 08:00 | Outpatient (BNVA) | payer MEDICARE, BC, SELFPAY | PROVIDERS: PCP Family Medicine; Visit Provider Specialist | DX: M17.12 Unilateral primary osteoarthritis, left knee (principal) | CPT/HCPCS: 99213 ==

== ENCOUNTER → 2023-06-10 15:21 | Outpatient (BNVA) | payer MEDICARE, BC, SELFPAY | PROVIDERS: PCP Family Medicine; Visit Provider Internal Medicine | DX: I10 Essential (primary) hypertension (principal); Z95.1 Presence of aortocoronary bypass graft; Z72.0 Tobacco use; I25.10 Atherosclerotic heart disease of native coronary artery without angina pectoris | CPT/HCPCS: 99214 ==

== ENCOUNTER → 2023-06-25 09:57 | Outpatient (BNVA) | payer MEDICARE, BC, SELFPAY | PROVIDERS: PCP Family Medicine; Visit Provider Family Medicine | DX: Z01.818 Encounter for other preprocedural examination (principal) | CPT/HCPCS: 80053; 81003; 85025; 87086 ==

== ENCOUNTER 2023-07-08 10:09 | Observation (INO) | payer MEDICARE, BC, SELFPAY ==
[2023-07-08] VITALS (17 sets, daily range): BP systolic 99–140; BP diastolic 49–79; PULSE 54–74; RESP 14–18; TEMP 36.1–36.7; O2SAT 89–94; BMI 40.8
[2023-07-08] MEDS: sodium chloride 0.9% 1,000 ML 30 ML IV (06:29)
[2023-07-08] MEDS: acetaminophen 1,000 MG/100 ML PIGGYBACK 400 MG IV ×3 (06:30→23:58)
[2023-07-08] MEDS: CELEcoxib 200 mg Capsule 400 MG PO (06:32)
[2023-07-08] MEDS: gabapentin 300 mg Capsule PO ×2 (06:32→17:11)
--- NOTE | 2023-07-08 06:49 | P.ANESASSM_ITS ---
Pre-Anesthetic Assessment Height/Weight: Height 1.55 m Weight 97.976 kg Temp Pulse Resp BP Pulse Ox O2 Del Method 98.1 F 59 L 17 122/73 93 Room Air 07/08/23 06:13 07/08/23 06:13 07/08/23 06:13 07/08/23 06:13 07/08/23 06:13 07/08/23 06:13 Operation Date: 07/08/23 07:00 Proposed Procedures p LEFT TOTAL KNEE ARTHROPLASTY WITH ALVIN GUIDANCE 82135, M17.10(Left) - Sheila Rowland MD Familial anesthetic complications: None Was Beta Gunjan taken within 24 hours: Yes Was Clonidine taken within 24 hours: N/A Last intake: Intake Last Liquid Date 07/07/23 Last Liquid Time 19:00 Last Solid Date 07/07/23 Last Solid Time 19:00 Social Tobacco and No alcohol Exam alert, oriented x 3, clear to auscultation bilaterally and regular rate & rhythm Airway Mallampati: Class III Dentition: partials Pulmonary Chronic Obstructive Pulmonary Disease CV/HEM Coronary Artery Disease (CABG) and Myocardial Infarction Metabolic Morbid Obesity Anesthetic Plan ASA status: 3 Anesthesia: Regional (specify below) Risk of > 500 ml blood loss (7ml/kg in children): Yes, adequate IV access and fluids planned Medications/Allergies Home Medications Medication Instructions Recorded Confirmed Last Taken Type amitriptyline 10 mg tablet 10 mg PO DAILY 12/08/19 07/08/23 07/07/23 History aspirin 325 mg tablet 325 mg PO DAILY 12/08/19 07/07/23 06/27/23 History duloxetine 60 mg capsule,delayed 60 mg PO DAILY 12/08/19 07/08/23 07/08/23 History release methimazole 10 mg tablet 10 mg PO DAILY 12/08/19 07/07/23 07/07/23 History metoclopramide HCl 10 mg tablet 10 mg PO Q6H PRN Nausea 12/08/19 07/07/23 06/02/20 History pravastatin 40 mg tablet 40 mg PO DAILY 12/08/19 07/08/23 07/07/23 History meloxicam 15 mg tablet 15 mg PO DAILY #30 tabs 01/19/20 07/07/23 07/07/23 Rx celecoxib 200 mg capsule (Celebrex) 200 mg PO DAILY #60 caps 06/15/20 07/07/23 07/07/23 Rx gabapentin 300 mg capsule 300 mg PO BID 01/17/21 07/07/23 07/07/23 History nitroglycerin 0.4 mg sublingual 0.4 mg sublingual Q5M PRN chest 01/17/21 07/07/23 Unknown Rx tablet pain #25 tabs hydrochlorothiazide 12.5 mg tablet 12.5 mg PO DAILY 10/01/21 07/08/23 07/07/23 History metoprolol tartrate 50 mg tablet 25 mg PO BID 10/01/21 07/08/23 07/08/23 History levothyroxine 137 mcg tablet 137 mcg PO DAILY 06/03/22 07/08/23 07/08/23 History (Levoxyl) zolpidem 5 mg tablet (Ambien) 5 mg PO .HS PRN Sleep 09/24/22 07/08/23 07/07/23 History isosorbide mononitrate 30 mg 30 mg PO BID #180 tabs 10/29/22 07/07/23 07/07/23 Rx tablet,extended release 24 hr Allergies Allergy/AdvReac Type Severity Reaction Status Date / Time hydrocodone [From [place]] Allergy Unknown ALGY-Hives Verified 07/08/23 06:06 oxycodone [From Percocet] Allergy Unknown ALGY-Hives Verified 07/08/23 06:06 tramadol Allergy Unknown ALGY-Hives Verified 07/08/23 06:06 Current Medications Generic Name Dose Route Start Last Admin Trade Name Freq PRN Reason Stop Dose Admin Sodium Chloride 1,000 mls @ 30 mls/hr 07/08/23 06:00 07/08/23 06:29 Sodium Chloride 0.9% IV 07/09/23 05:59 30 mls/hr .Q24H MISTY Administration PFSH Anesthesia Medical History Hypertension COPD (chronic obstructive pulmonary disease) Tobacco abuse Myocardial infarction Surgical History History of total right knee replacement S/P knee replacement Status post breast reduction S/P hysterectomy S/P CABG (coronary artery bypass graft) Family History Father Cancer Brother Cancer CAD (coronary artery disease) Diabetes Hypertension Myocardial infarction Family history of premature coronary artery disease, Onset Age: 50 Mother Myocardial infarction CAD (coronary artery disease) Social History Smoking and tobacco/nicotine status: current every day tobacco/nicotine user cigarettes Packs smoked per day: 1 Alcohol intake: never Substance/Drug Use: never Household members: spouse Marital status: Data Anesthesia Cardiac Studies: Echocardiogram 12/26/22 Sestamibi Stress Test (Cardiology) 10/25
--- NOTE | 2023-07-08 06:52 | SUR.PREOP ---
Time out was performed at bedside for nerve block to left knee. Patient was connected to the monitor and tolerated procedure well.
--- NOTE | 2023-07-08 07:01 | ANES.PROC ---
Anesthesia Procedures Procedure/Date: 07/08/23 Nerve Block ^: Nerve Block 1: Main Anesthesia: spinal anesthesia block Time Out Performed: Yes Consent: requested by attending/covering physician, from patient, risks and benefits reviewed and patient agrees to proceed Nerve block location: adductor canal (L) Anesthesia monitors applied: pulse oximetry, EKG, BP cuff and oxygen Nerve block position: supine Anesthetic Used: ropivicaine 0.5% (30 ml) and with decadron (4 mg) Ultrasound used to: recognize landmarks and visualize and ID femerol nerve Nerve Stimulator Used?: No Interscalene/Femoral BLK: 4 stimuplex 21 g needle used for position and inplane approach, visualize local anesthetic spread and no vascular puncture identified Injection: neg aspiration of heme Patient Tolerated Procedure: well Complications: none
--- NOTE | 2023-07-08 07:05 | W.PM.OPSUD ---
Surgery/Procedure H&P Update DATE OF PROCEDURE: July 08, 2023 DATE H&P PERFORMED: 06/25/23 H&P UPDATE INFORMATION: I have reviewed H&P completed within last 30 days, I have examined patient prior to procedure, No changes to prior documentation and H&P is in [facility] EMR on date indicated PLANNED PROCEDURE: Operation Date: 07/08/23 07:00 Proposed Procedures p LEFT TOTAL KNEE ARTHROPLASTY WITH ALVIN GUIDANCE 29480, M17.10(Left) - Sheila Rowland MD Related Problem List Diagnoses (1) Osteoarthritis of left knee: Qualifiers: Osteoarthritis type: primary Qualified Code(s): M17.12 - Unilateral primary osteoarthritis, left knee
[2023-07-08] MEDS: ceFAZolin 2,000 MG in sodium chloride 0.9% (plus) 50 ML 100 MG IV ×3 (07:10→23:58)
[2023-07-08] MEDS: tranexamic acid 1,000 mg/10mL SDV 1000 MG IV (07:51)
[2023-07-08] MEDS: ceFAZolin 1,000 mg SDV 2000 MG IRRIGATION (08:06)
[2023-07-08] MEDS: vancomycin 1,000 MG SDV 1000 MG XX (08:06)
[2023-07-08] MEDS: BUPivacaine liposome 13.3 mg/mL SDV 10 mL 266 MG INFILTRATI (08:07)
[2023-07-08] MEDS: BUPivacaine 0.5% INJ 30 mL 20 ML INJECTION (08:07)
--- NOTE | 2023-07-08 09:57 | XR_ITS ---
WS: [id number] Exam: XR knee LT 1-2V [id number] Date/Time of Exam: 07/08/2023 10:07 AM Reason For Exam: Status post left total knee arthroplasty Comparison 05/05/2023. A LEFT total knee replacement is noted in satisfactory position. Postoperative changes in the adjacen t soft tissues. IMPRESSION: 1. LEFT total knee replacement in satisfactory position.
--- NOTE | 2023-07-08 10:07 | PM.OP ---
Operative Report Date of procedure: July 08, 2023 Pre-op diagnosis: Severe degenerative osteoarthritis left knee with slight varus deformity Post-op diagnosis: Severe degenerative osteoarthritis left knee with slight varus deformity Post-op findings: Significant degenerative osteoarthritis primarily involving the medial femoral condyle and patellofemoral joint Procedure done: Left total knee arthroplasty with French guidance Implants: The Jose Roberto total knee system with a size 2 triathlon beaded cruciate retaining femur left, a triathlon titanium tibial component size 3 beaded, a triathlon X3 tibial bearing CS insert size 3 X 9 mm and a beaded triathlon titanium asymmetric patella size 32 x 10 mm Specimens removed/disposition: Bone, disposed of Surgeon: Sheila Rowland MD [employer]bm[employer] Consultant: Carrie Bahena, nurse practitioner, who services were essential for positioning, retraction, closure, and completion of the surgical procedure. Anesthesia: Spinal (With supplemental adductor block and MAC, ASA 3) Estimated blood loss (mL): 80 Tourniquet time (min): 0 (Not utilized) IV fluids (mL): 1,000 Urine output (mL): 150 Complications: None Findings: Severe degenerative osteoarthritis primarily involving the medial compartment and patellofemoral joint Condition: stable Disposition: PACU (Then to floor for postoperative rehabilitation and pain management) Brief History: This 73-year-old woman previously underwent right total knee arthroplasty multiple years ago. She has done well with this. She presented to the office with complaints of significant limitations in her activities of daily living secondary to her left knee degenerative osteoarthritis. She had utilized nonsteroidal anti-inflammatory medications, home physical therapy program, bracing, and injections without relief. She was using a cane for ambulation prior to presentation today. Her pain also presented her from sleeping at night. Risks and complications were discussed preoperatively with her in the office, and consents were signed. Procedure: The patient was brought to the operating theater, and after undergoing spinal anesthetic, with supplemental adductor canal block, ASA 3, the left lower extremity was prepped with Dura-Prep and draped in usual fashion following placement of a tourniquet high on the leg. The leg was then draped free.? Tourniquet was not elevated during the case.? A surgical pause was performed, and at the time of the surgical pause, we confirmed the site and side of surgery. Additionally, we confirmed the appropriate and timely administration of preoperative antibiotics, Ancef 2 g and Transexemic acid 1 g.? The availability of equipment was confirmed, and the patient's identity was verbalized as well. Following the surgical pause, an incision was made centering over the patella continuing proximally and distally as necessary to allow access to the knee joint. Dissection continued through skin and soft tissues using a scalpel. Hemostasis was obtained using electrocautery. The skin incision was followed by a median parapatellar arthrotomy. The leg was extended and the patella was able to be displaced laterally.? Appropriate arrays and markers were placed in appropriate position for use of the French.? Preoperative planning had been accomplished and was discussed in detail with the [facility] exhibit display representative.? Intraoperative mapping of the femur and tibia was accomplished after the arrays were placed.? Internal markers were also placed.? Once we had accomplished the French mapping, we began the appropriate resections for placement of the prosthesis.? The plan was for a cruciate retaining right total knee arthroplasty. Once appropriate mapping had been accomplished retraction was established using manual retraction by surgical technicians and also the French leg positioner and retractors.? The knee was evaluated.? There was significant osteoarthritic change as well as slight flexion contracture.? Appropriate bone resection was accomplished using the French.? The femur was sized to a size 2.? Following femoral cuts, attention was directed to the tibia.? Osteophytes were removed prior to this portion of the procedure.? We had performed a minimal medial release at the beginning of the procedure to allow for placement of the array.? Proximal tibia was evaluated, and it was felt that appropriate size for the tibia was a size 3.? Tray was noted to fit nicely with good coverage.? Rim fit was accomplished with the size 3. A trial reduction was accomplished after osteophytes have been removed as well as the medial and lateral menisci.? We had removed the anterior cruciate ligament at the beginning of the case and preserved the posterior cruciate ligament.? Trial reduction was accomplished with a size 2 femoral cruciate retaining component and a size 3 CS tibial bearing insert which was 9 mm.? Alignment was felt to be appropriate as well.? Trial components were removed after the femur had been drilled.? Prior to removal of the tibial tray which had been pinned in position with appropriate rotation as determined by the French plan, we broached the tibia.? Subsequently, the 4 drill holes were made for the prosthetic component.? All trial components were removed, and the wound was irrigated.? Plans were made for insertion of the prosthetic components.? Prior to this, the patella was manually prepared.? After resection of the articular surface with the jogging system, it was measured and measured a 32 mm patella.? We resected approximately 8 mm of patella.? Patellar height was restored with the patellar component. Once again, the wound was irrigated.? The Tritanium tibia was impacted into position.? The beaded femur was then impacted into position in a cementless fashion. The CS tibial insert was placed prior to placement of the femoral component. The patella was pressed into position with a patellar clamp.? Exparel was injected about the components deep and superficially.? The knee was then copiously irrigated with betadine and saline and suctioned dry. Attention was then directed to closure. Closure was accomplished with 0 Vicryl in the fascial tissues.? The suture line of 0 Vicryl was supplemented with strata fix, #1, with a running stitch from proximal to distal and a second running stitch from distal to proximal.? This was followed by Surgiflo and vancomycin powder.? Following this, a 2-0 Monocryl was used in the subcutaneous tissues, and the skin was closed with 3-0 Strata fix.? Care was taken to assure an excellent subcutaneous as well as skin closure.? A sterile dressing was then placed consisting of Dermabond Prineo, OpSite, ABD, sterile soft roll, and an Jerardo wrap including over the foot. The patient was returned the Recovery Room in a satisfactory condition. X-rays were obtained and reviewed there.? The patient will be discharged to the floor for postoperative rehabilitation and pain management. Related Problem List Diagnoses (1) Osteoarthritis of left knee: (2) Varus deformity, not elsewhere classified, left knee:
--- NOTE | 2023-07-08 10:50 | ANE.PACU2 ---
Inpatient post-anesthesia follow up: Airway intact: Yes Vital signs: Temperature 98.0 F Pulse Rate 54 Respiratory Rate 14 Blood Pressure 122/79 Pulse Oximetry 94 Oxygen Delivery Me thod Nasal Cannula Oxygen Flow Rate Fraction of Inspir ed Oxygen Hydration adequate: Yes Nausea and vomiting: No Pain level: 1 Mental status: Baseline
[2023-07-08] MEDS: tranexamic acid 1,000 MG/100 ML PREMIX 600 MG IV (15:35)
[2023-07-08] MEDS: calcium carbonate 500 mg Chew Tablet 1000 MG PO (17:10)
[2023-07-08] MEDS: chlorhexidine gluconate 0.12% Btl 473 mL 30 ML MUCOUS MEM (17:11)
[2023-07-08] MEDS: iron polysaccharide complex 150 mg Capsule PO (17:11)
[2023-07-08] MEDS: sennosides-docusate Tablet 2 TAB PO (17:11)
--- NOTE | 2023-07-08 17:45 | PC.NURSE ---
This nurse placed patient on 4L NC once arriving to the floor from PACU. Oxygen saturation was in the mid to upper 80's on roomair. Patient's pain has been well controlled. Neurovascular checks are good. Patient has full sensation in lower extremities. She is down to 1.5L NC. Good PO intake. Currently working with physical therapy.
[2023-07-08] MEDS: isosorbide mononitrate ER 30 mg Tablet PO (20:47)
[2023-07-08] MEDS: metoprolol tartrate 25 mg Tablet PO (20:47)
[2023-07-09] VITALS (7 sets, daily range): BP systolic 110–136; BP diastolic 70–79; PULSE 62–78; RESP 16–18; TEMP 36.6–36.8; O2SAT 91–92; BMI 43.8
[2023-07-09] MEDS: zolpidem 5 mg Tablet PO (00:07)
[2023-07-09 05:25] LABS: Basophils % 0.1 %; Hematocrit 44.6 % (36-47); Lymphocytes # 1.4 10^3/uL (0.8-4.8); Lymphocytes % 12.5 %; Mean Corpuscular Hemoglobin 32.1 pg (27-33); Mean Corpuscular Volume 97.4 fl (85-98); Mean Platelet Volume 10.1 fL (7.4-10.4); Monocytes # 1.2 10^3/uL (0.2-0.9); Monocytes % 10.7 %; Neutrophils # 8.58 10^3/uL (1.8-7.7); Neutrophils % 76.4 %; Nucleated Red Blood Cells % 0 %; Platelet Count 184 10^3/cmm (157-399); Red Blood Count 4.58 10^6/uL (3.85-5.65); Red Cell Distribution Width 13.6 % (12.1-15.1); White Blood Count 11.22 10^3/uL (3.29-11.43)
[2023-07-09 05:51] LABS: Anion Gap 14.2 (5-19); Blood Urea Nitrogen 18 mg/dL (8-23); Calcium 8.9 mg/dL (8.5-10.5); Carbon Dioxide 26 mmol/L (22-29); Chloride 103 mmol/L (98-107); Glucose 174 mg/dL (65-115); Osmolality Calculated 294 mOsm/kg (285-295); Potassium 4.2 mmol/L (3.5-5.1); Sodium 139 mmol/L (136-145)
[2023-07-09] MEDS: acetaminophen 1,000 MG/100 ML PIGGYBACK 400 MG IV (06:26)
[2023-07-09] MEDS: ceFAZolin 2,000 MG in sodium chloride 0.9% (plus) 50 ML 100 MG IV (06:58)
[2023-07-09] MEDS: calcium carbonate 500 mg Chew Tablet 1000 MG PO (07:55)
[2023-07-09] MEDS: levothyroxine 137 mcg Tablet PO (07:55)
[2023-07-09] MEDS: duloxetine 60 mg Capsule PO (07:55)
[2023-07-09] MEDS: atorvastatin 40 mg Tablet 20 MG PO (07:55)
[2023-07-09] MEDS: methIMAzole 5 MG Tablet 10 MG PO (07:56)
[2023-07-09] MEDS: multivitamin therapeutic Tablet 1 TAB PO (07:56)
[2023-07-09] MEDS: cholecalciferol (vitamin D3) 1,000 unit Tablet 1000 UNIT PO (07:56)
[2023-07-09] MEDS: gabapentin 300 mg Capsule PO (07:56)
[2023-07-09] MEDS: metoprolol tartrate 25 mg Tablet PO (07:56)
[2023-07-09] MEDS: hydroCHLOROthiazide 25 mg Tablet 12.5 MG PO (07:56)
[2023-07-09] MEDS: sennosides-docusate Tablet 2 TAB PO (07:57)
[2023-07-09] MEDS: CELEcoxib 200 mg Capsule PO (07:57)
[2023-07-09] MEDS: chlorhexidine gluconate 0.12% Btl 473 mL 30 ML MUCOUS MEM ×2 (07:57→13:18)
[2023-07-09] MEDS: iron polysaccharide complex 150 mg Capsule PO (07:57)
[2023-07-09] MEDS: aspirin 325 mg Tablet PO (07:57)
[2023-07-09] MEDS: isosorbide mononitrate ER 30 mg Tablet PO (07:57)
--- NOTE | 2023-07-09 15:14 | P.DS_ITS ---
Discharge Providers Date of Admission: 07/08/23 10:09 Date of Discharge: July 09, 2023 Attending Provider at Admission: Sheila Rowland MD Attending Provider at Discharge: Sheila Rowland MD Primary Care Provider: Stephen Almaguer Diagnoses at Discharge Discharge Diagnosis (1) Status post total left knee replacement not using cement: Status: Acute (2) Osteoarthritis of left knee: Status: Acute Qualifiers: Osteoarthritis type: primary Qualified Code(s): M17.12 - Unilateral primary osteoarthritis, left knee (3) Varus deformity, not elsewhere classified, left knee: Status: Acute Reason for Visit Reason for Visit: M17.10 Brief History: Patient presented for left total knee arthroplasty. This 73-year-old woman previously underwent right total knee arthroplasty multiple years ago. She has done well with this. She presented to the office with complaints of significant limitations in her activities of daily living secondary to her left knee degenerative osteoarthritis. She had utilized nonsteroidal anti-inflammatory medications, home physical therapy program, bracing, and injections without relief. She was using a cane for ambulation prior to presentation today. Her pain also presented her from sleeping at night. Risks and complications were discussed preoperatively with her in the office, and consents were signed. Hospital Course Hospital Course This 73-year-old woman was admitted following left total knee arthroplasty under observation status. The patient came into the hospital for overnight rehabilitation. She had difficulty with pain control secondary to multiple allergies. She was placed on Dilaudid which she seemed to tolerate. She previously had been unable to tolerate hydrocodone, oxycodone, or tramadol. Her family noted with kidney stones, she had to have morphine. She did well with the Dilaudid, and once her pain was under control, we were able to discharge her to home on the first postoperative day. There was no evidence of DVT or other c omplication. Physical Exam Const: COMMON NORMALS: no acute distress, average body habitus, patient oriented x3, no limitations, healthy appearing, alert and well nourished GENERAL APPEARANCE: cooperative; not anxious and not combative ORIENTATION/CONSCIOUSNESS: Yes awake, Yes oriented to person, Yes oriented to place and Yes oriented to time HENMT: COMMON NORMALS: normocephalic and atraumatic HEAD & SCALP: normocephalic and atraumatic Eye: GENERAL EYE: appearance normal, both eyes and all related structures EYELID: eyelids normal Chest: COMMONS NORMALS: normal inspection of the chest Resp: COMMON NORMALS: normal respiratory effort EFFORT & INSPECTION: Yes able to speak in complete sentences and Yes symmetric chest movement Extremity: LEFT LOWER EXTREMITY: Yes knee joint (Large outer dressing is removed. Minimal swelling) Left knee: Yes inspection (No significant ecchymosis.), Yes palpation (Minimal tenderness to palpation), Yes ROM (Able to straight leg raise. Not evaluated) and Yes neurovascular exam (Intact distally with no evidence of DVT) Neuro: COMMON NORMALS: patient oriented x3 SENSORIUM/ORIENTATION: Yes alert, Yes oriented to person, Yes oriented to place and Yes oriented to time SPEECH: speech normal GAIT: Yes Normal gait present Psych: ATTITUDE: Yes calm and Yes engaged ACTIVITY/MOTOR BEHAVIOR: Yes appropriate eye contact ATTENTION/CONCENTRATION: Yes attention grossly intact MEMORY/COGNITION: Yes memory grossly intact Skin: COMMON NORMALS: no rashes or lesions noted and turgor normal; negative for no jaundice GENERAL SKIN EXAM: no rashes or lesions noted, turgor normal and no jaundice Urinary Catheter Management: Bautista: Cath Placed During This Visit: yes, but has since been removed by the nurse Reason for Continuing Indwelling Catheter: Decision to DC Catheter Urinary Catheter Date of Insertion: 07/08/23 Urinary Catheter Time of Insertion: 07:40 Date Urinary Catheter Removed: 07/09/23 Time Urinary Catheter Discontinued: 06:00 Discharge Data Studies Completed and Pending Completed Studies During Hospitalization Category Date Time Status XR knee LT 1-2V [id number] Urgent Exams 07/08/23 09:57 Completed Laboratory Results WBC 11.22 10^3/uL (3.29-11.43) 07/09/23 05:11 RBC 4.58 10^6/uL (3.85-5.65) 07/09/23 05:11 Hgb 14.70 g/dL (11.27-16.99) 07/09/23 05:11 Hct 44.6 % (36-47) 07/09/23 05:11 MCV 97.4 fl (85-98) 07/09/23 05:11 MCH 32.1 pg (27-33) 07/09/23 05:11 MCHC 33.0 g/dL (30-55) 07/09/23 05:11 RDW 13.6 % (12.1-15.1) 07/09/23 05:11 Plt Count 184 10^3/cmm (157-399) 07/09/23 05:11 MPV 10.1 fL (7.4-10.4) 07/09/23 05:11 Neut % (Auto) 76.4 % 07/09/23 05:11 Lymph % (Auto) 12.5 % 07/09/23 05:11 [place] % (Auto) 10.7 % 07/09/23 05:11 Eos % (Auto) 0.0 % 07/09/23 05:11 Baso % (Auto) 0.1 % 07/09/23 05:11 Neut # (Auto) 8.58 10^3/uL (1.8-7.7) H 07/09/23 05:11 Lymph # (Auto) 1.4 10^3/uL (0.8-4.8) 07/09/23 05:11 [place] # (Auto) 1.2 10^3/uL (0.2-0.9) H 07/09/23 05:11 Eos # (Auto) 0.0 10^3/uL (0.0-0.8) 07/09/23 05:11 Baso # (Auto) 0.0 10^3/uL (0.0-0.1) 07/09/23 05:11 Nucleated RBC % (auto) 0 % 07/09/23 05:11 Nucleated RBCs # 0.0 /100WBC 07/09/23 05:11 Sodium 139 mmol/L (136-145) 07/09/23 05:11 Potassium 4.2 mmol/L (3.5-5.1) 07/09/23 05:11 Chloride 103 mmol/L (98-107) 07/09/23 05:11 Carbon Dioxide 26 mmol/L (22-29) 07/09/23 05:11 Anion Gap 14.2 (5-19) 07/09/23 05:11 BUN 18 mg/dL (8-23) 07/09/23 05:11 Creatinine 0.7 mg/dL (0.5-0.9) 07/09/23 05:11 GFR Calculation Not Reportable 07/09/23 05:11 Glucose 174 mg/dL (65-115) H 07/09/23 05:11 Calculated Osmolality 294 mOsm/kg (285-295) 07/09/23 05:11 Calcium 8.9 mg/dL (8.5-10.5) 07/09/23 05:11 Vitals Last Vital Signs Temp 98.0 F 07/09/23 12:00 Pulse 68 07/09/23 12:00 Resp 16 07/09/23 13:17 BP 110/71 07/09/23 12:00 Pulse Ox 92 07/09/23 12:00 O2 Del Method Room Air 07/09/23 12:00 O2 Flow Rate 1 07/08/23 13:23 Discharge Plan Discharge Patient Disposition: Home Health Service Condition: Stable Prescriptions: New acetaminophen 500 mg Tablet 1,000 mg PO Q8H Qty: 0 0RF hydromorphone 4 mg Tablet 4 mg PO Q4H PRN (Reason: Pain) 7 Days Qty: 30 0RF Continued meloxicam 15 mg tablet 15 mg PO DAILY Qty: 30 0RF Rx Instructions: Take 1 tablet once daily by mouth gabapentin 300 mg capsule 300 mg PO BID nitroglycerin 0.4 mg tablet, sublingual 0.4 mg sublingual Q5M PRN (Reason: chest pain) Qty: 25 3RF Rx Instructions: do not exceed 3 doses per episode hydrochlorothiazide 12.5 mg tablet 12.5 mg PO DAILY metoprolol tartrate 50 mg tablet 25 mg PO BID methimazole 10 mg tablet 10 mg PO DAILY metoclopramide HCl 10 mg tablet 10 mg PO Q6H PRN (Reason: Nausea) pravastatin 40 mg tablet 40 mg PO DAILY amitriptyline 10 mg tablet 10 mg PO DAILY duloxetine 60 mg capsule,delayed release(DR/EC) 60 mg PO DAILY aspirin 325 mg tablet 325 mg PO DAILY zolpidem [Ambien] 5 mg tablet 5 mg PO .HS PRN (Reason: Sleep) levothyroxine [Levoxyl] 137 mcg tablet 137 mcg PO DAILY celecoxib [Celebrex] 200 mg capsule 200 mg PO DAILY Qty: 60 1RF Rx Instructions: TAKE 1 CAPSULE TWICE DAILY. isosorbide mononitrate 30 mg tablet extended release 24 hr 30 mg PO BID Qty: 180 3RF Discharge Orders: Discharge Order (Routine); Ordered 07/09/23 Ordered By: Sheila Rowland Referrals: [facility] ([facility]) [Outside] Sheila Rowland MD [Physician] - 07/21/23 9:00 am Discharge Diet: Advance as tolerated and Usual diet Discharge Activity: Increase activity as tolerated, Limit activity as instructed, Use walker/crutches as instructed and As per PT/OT instructions Patient Instructions: Hydromorphone (By mouth), Total Knee Replacement (GEN), Joint Replacement Stoplight, Opioid Safety Activity Restrictions/Additional Instructions: Physical therapy at home for range of motion, strengthening, and gait training. Weightbearing as tolerated. Ice to left knee. Maintain current dressing until it comes off on its own. Do not soak your knee in water, but you may shower. 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
== END 2023-07-09 16:49 | disposition home health service (06) ==
LOC: MEDSURG 10:10
PROVIDERS: Admitting Provider Specialist; PCP Family Medicine; Visit Provider Specialist
PROC: 8E0Y0CZ Robotic Assisted Procedure of Lower Extremity, Open Approach (ICD-10-PCS; CPT 27447; principal; 2023-07-08 07:00)
DX: M17.12 Unilateral primary osteoarthritis, left knee (principal); M21.162 Varus deformity, not elsewhere classified, left knee; J44.9 Chronic obstructive pulmonary disease, unspecified; I25.10 Atherosclerotic heart disease of native coronary artery without angina pectoris; Z95.1 Presence of aortocoronary bypass graft; I25.2 Old myocardial infarction; E66.01 Morbid (severe) obesity due to excess calories; Z68.41 Body mass index [BMI] 40.0-44.9, adult; Z79.82 Long term (current) use of aspirin; F17.210 Nicotine dependence, cigarettes, uncomplicated
CPT/HCPCS: 20985; 27447; 36415; 51702; 73560; 80048; 85025; 97110; 97116; 97161; 97165; C1776; C9290; G0378; J0131; J0690; J1100; J2250; J2371; J2704; J2795; J3370; J3490; J7030

== ENCOUNTER → 2023-07-21 08:37 | Outpatient (BNVA) | payer MEDICARE, BC, SELFPAY | PROVIDERS: PCP Family Medicine; Visit Provider Nurse Practitioner | DX: Z96.652 Presence of left artificial knee joint (principal); M17.12 Unilateral primary osteoarthritis, left knee | CPT/HCPCS: 73560; 73565; 99024 ==

== ENCOUNTER 2023-08-14 06:00 | Outpatient (RCR) | payer MEDICARE, BC, SELFPAY | END 2023-08-21 23:59 | disposition home or self-care (01) | LOC: MPT 06:00 | PROVIDERS: Visit Provider Specialist | DX: Z47.1 Aftercare following joint replacement surgery (principal); Z96.652 Presence of left artificial knee joint | CPT/HCPCS: 97110; 97140; 97162; G0283 ==

== ENCOUNTER → 2023-08-20 13:43 | Outpatient (BNVA) | payer MEDICARE, BC, SELFPAY | PROVIDERS: PCP Family Medicine; Visit Provider Nurse Practitioner | DX: Z96.652 Presence of left artificial knee joint (principal); M17.12 Unilateral primary osteoarthritis, left knee | CPT/HCPCS: 73560; 73565; 99024 ==

== ENCOUNTER 2023-08-22 06:00 | Outpatient (RCR) | payer MEDICARE, BC, SELFPAY | END 2023-09-11 23:59 | disposition home or self-care (01) | LOC: MPT 06:00 | PROVIDERS: PCP Family Medicine; Visit Provider Specialist | DX: Z47.1 Aftercare following joint replacement surgery (principal); Z96.652 Presence of left artificial knee joint | CPT/HCPCS: 97110; G0283 ==

== ENCOUNTER → 2023-09-10 12:44 | Outpatient (BNVA) | payer MEDICARE, BC, SELFPAY | PROVIDERS: PCP Family Medicine; Visit Provider Nurse Practitioner | DX: Z96.652 Presence of left artificial knee joint (principal); M17.12 Unilateral primary osteoarthritis, left knee | CPT/HCPCS: 99213 ==

== ENCOUNTER → 2023-12-24 07:54 | Outpatient (BNVA) | payer MEDICARE, BC, SELFPAY | PROVIDERS: PCP Family Medicine; Visit Provider Nurse Practitioner | DX: M25.562 Pain in left knee (principal); I25.118 Atherosclerotic heart disease of native coronary artery with other forms of angina pectoris; I10 Essential (primary) hypertension; Z96.652 Presence of left artificial knee joint; F17.200 Nicotine dependence, unspecified, uncomplicated | CPT/HCPCS: 73560; 73565; 99214 ==

== ENCOUNTER 2024-01-02 06:00 | Outpatient (RCR) | payer MEDICARE, BC, SELFPAY | END 2024-01-21 23:59 | disposition home or self-care (01) | LOC: MPT 06:00 | PROVIDERS: Visit Provider Nurse Practitioner | DX: M25.562 Pain in left knee (principal) | CPT/HCPCS: 97110; 97162; G0283 ==

== ENCOUNTER 2024-01-20 06:56 | Outpatient (CLI) | payer MEDICARE, BC, SELFPAY ==
[2024-01-20 07:20] VITALS: BMI 41.7
--- NOTE | 2024-01-20 07:23 | ECG_ITS ---
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
--- NOTE | 2024-01-20 07:24 | NMCV_ITS ---
NM kasia perf SPECT r/s* [id number] Rin Mead Age: 73 Gender: F : 1950 Exam Date: 01/20/2024 07:42 Ordering Phys: Antonella Salas Technologist: IESHA Chang Exam Location: [facility] Indications: Rt sided chest pain STRESS TEST Please see separate stress test report in [facility] for full findings IMAGE PROTOCOL Rest/Stress 1 Lexiscan Day Radiopharmaceutical Dose (mCi) Administration Site Administered by Rest: Tc-99m 10.6 IV IESHA Chang Sestamibi Stress:Tc-99m 32.9 IV IESHA Chang Sestamibi Rest: 20-Jan-2024 60 Discovery 630 Stress: 20-Jan-2024 30 Discovery 630 0.4mg Lexiscan. Images obtained in supine and prone position. SPECT RESULTS Technical Quality: Good Raw Data Analysis: normal Image Corrections: No attenuation or motion correction applied Summed Stress Score: 0 Summed Rest Score: 0 Summed Difference Score: 0 PERFUSION FINDINGS SPECT images demonstrate homogeneous tracer distribution throughout the myocardium. FUNCTIONAL RESULTS (calculated via Gated SPECT) Stress Image LV EF (%): 89 Stress EDV (mL):62 TID: 1.11 Stress ESV (mL):7 FUNCTIONAL FINDINGS: There is normal left ventricular systolic function. IMPRESSIONS 1. Normal myocardial perfusion imaging with no evidence of ischemia 2. LV systolic function is normal Marlon Ybarra MD (Electronically Signed) Final Date: 21 January 2024 08:41 S
[2024-01-20] MEDS: regadenoson 0.4 Mg/5 ml Syringe IVP (08:21)
[2024-01-20 08:47] VITALS: BP 160/63; PULSE 67
== END 2024-01-20 06:57 | disposition home or self-care (01) ==
PROVIDERS: PCP Family Medicine; Visit Provider Nurse Practitioner Family
DX: I25.10 Atherosclerotic heart disease of native coronary artery without angina pectoris (principal); R53.83 Other fatigue
CPT/HCPCS: 36415; 78452; 93017; 96374; A9500; J2785

== ENCOUNTER 2024-01-22 06:00 | Outpatient (RCR) | payer MEDICARE, BC, SELFPAY | END 2024-02-21 23:59 | disposition home or self-care (01) | LOC: MPT 06:00 | PROVIDERS: PCP Family Medicine; Visit Provider Nurse Practitioner | DX: M25.562 Pain in left knee (principal) | CPT/HCPCS: 97110; G0283 ==

== ENCOUNTER → 2024-02-04 08:43 | Outpatient (BNVA) | payer MEDICARE, BC, SELFPAY | PROVIDERS: PCP Family Medicine; Visit Provider Nurse Practitioner | DX: Z96.652 Presence of left artificial knee joint | CPT/HCPCS: 99213 ==

== ENCOUNTER → 2024-06-28 09:04 | Outpatient (BNVA) | payer MEDICARE, SELFPAY | PROVIDERS: PCP Family Medicine; Visit Provider Nurse Practitioner | DX: M25.562 Pain in left knee; Z96.653 Presence of artificial knee joint, bilateral | CPT/HCPCS: 73560; 73565; 99214 ==

== ENCOUNTER → 2024-07-23 09:37 | Outpatient (BNVA) | payer MEDICARE, SELFPAY | PROVIDERS: PCP Family Medicine; Visit Provider Specialist | DX: G43.909 Migraine, unspecified, not intractable, without status migrainosus (principal) | CPT/HCPCS: 99204 ==

== ENCOUNTER → 2024-07-26 12:25 | Outpatient (BNVA) | payer MEDICARE, SELFPAY | PROVIDERS: PCP Family Medicine; Visit Provider Internal Medicine | DX: I10 Essential (primary) hypertension (principal); Z95.1 Presence of aortocoronary bypass graft; Z72.0 Tobacco use; I25.118 Atherosclerotic heart disease of native coronary artery with other forms of angina pectoris | CPT/HCPCS: 99213 ==

== ENCOUNTER → 2024-11-18 08:47 | Outpatient (BNVA) | payer MEDICARE, SELFPAY | PROVIDERS: PCP Family Medicine; Visit Provider Specialist | DX: G43.909 Migraine, unspecified, not intractable, without status migrainosus (principal) | CPT/HCPCS: 99213 ==

== ENCOUNTER → 2025-01-20 08:48 | Outpatient (BNVA) | payer MEDICARE, SELFPAY | PROVIDERS: PCP Family Medicine; Visit Provider Specialist | DX: G43.711 Chronic migraine without aura, intractable, with status migrainosus (principal) | CPT/HCPCS: 64615; J0585; J9999 ==

== ENCOUNTER → 2025-01-24 14:32 | Outpatient (BNVA) | payer MEDICARE, SELFPAY | PROVIDERS: PCP Family Medicine; Visit Provider Internal Medicine | DX: I25.118 Atherosclerotic heart disease of native coronary artery with other forms of angina pectoris (principal); I10 Essential (primary) hypertension; Z79.82 Long term (current) use of aspirin; Z95.1 Presence of aortocoronary bypass graft; Z72.0 Tobacco use; I25.2 Old myocardial infarction | CPT/HCPCS: 99214 ==

== ENCOUNTER 2025-04-15 14:23 | Outpatient (CLI) | payer MEDICARE, SELFPAY ==
--- NOTE | 2025-04-15 14:30 | MR_ITS ---
WS: [id number] MRI LEFT SHOULDER HISTORY: SEVERE LT SHOULDER PAIN COMPARISON: None available. TECHNIQUE: Multiplanar sequences of the shoulder joint are submitted. Moderate AC joint arthritis. Fluid through the AC joint. Small erosions from the clavicle and the acromion. Osteophyte encroachment upon the myotendinous portion of the supraspinatus. Mild diffuse synovitis. Small amount of fluid in the subacromial subdeltoid bursa. Mild subacromial impingement. No os acromion. Biceps tendon present in the bicipital groove. There is increased T2 signal in the biceps tendon through the bicipital groove. Increased fluid in the tendon sheath. Mildly high riding humeral head. Mild narrowing of the glenohumeral joint. Small glenohumeral joint effusion distending the axillary pouch. Fluid distention of the subscapularis recess. No muscle atrophy or edema. Mild tendinopathy in the distal supraspinatus tendon but no tear. Subscapularis tendon is intact. Infraspinatus tendon is intact. Abnormal signal within the anterior labrum. There is a small fluid collection associated with the anterior labrum and the middle glenohumeral ligament. Paralabral cyst associated with the anterior labral tear. Surface fraying of the posterior labrum but no definite tear. Suspect tear also in the superior labrum. MR/MR shoulder LT wo con* [id number] IMPRESSION: 1. Moderate AC joint arthropathy with encroachment upon the myotendinous porti on of the supraspinatus. 2. Intrasubstance tear biceps tendon in the bicipital groove. Partial tear wit h tenosynovitis. 3. No rotator cuff tear. 4. Paralabral cyst associated with an anterior labral tear. 5. Tear suspected in the superior labrum also.
== END 2025-04-15 14:24 | disposition home or self-care (01) ==
PROVIDERS: PCP Family Medicine; Visit Provider Family Medicine
DX: M19.012 Primary osteoarthritis, left shoulder (principal); S46.212A Strain of muscle, fascia and tendon of other parts of biceps, left arm, initial encounter; S43.492A Other sprain of left shoulder joint, initial encounter; X58.XXXA Exposure to other specified factors, initial encounter; M75.22 Bicipital tendinitis, left shoulder
CPT/HCPCS: 73221

== ENCOUNTER → 2025-04-21 13:12 | Outpatient (BNVA) | payer MEDICARE, SELFPAY | PROVIDERS: PCP Family Medicine; Visit Provider Specialist | DX: G43.711 Chronic migraine without aura, intractable, with status migrainosus (principal) | CPT/HCPCS: 64615; J0585; J9999 ==

== ENCOUNTER → 2025-04-28 14:07 | Outpatient (BNVA) | payer MEDICARE, SELFPAY | PROVIDERS: PCP Family Medicine; Visit Provider Nurse Practitioner Family | DX: B35.3 Tinea pedis (principal); L57.8 Other skin changes due to chronic exposure to nonionizing radiation; L81.4 Other melanin hyperpigmentation; L82.1 Other seborrheic keratosis; L57.0 Actinic keratosis | CPT/HCPCS: 17000; 99203 ==

== ENCOUNTER → 2025-05-09 13:03 | Outpatient (BNVA) | payer MEDICARE, SELFPAY | PROVIDERS: PCP Family Medicine; Visit Provider Specialist | DX: M19.012 Primary osteoarthritis, left shoulder (principal); M75.02 Adhesive capsulitis of left shoulder; M75.82 Other shoulder lesions, left shoulder | CPT/HCPCS: 20610; 73030; 99214; J1100; J2795; J3301; J9999 ==